=== PATIENT | female | born 1990 | race Caucasian/White ===

== ENCOUNTER 2016-06-02 07:30 | Inpatient (IN) | payer OTHER ==
[~2016-06-02] VITALS: Ht 170.2 cm; Wt 133.0 kg
[2016-06-02] MEDS ORDERED: LACTATED RINGER'S 1000ML 1,000 ML IV PRN (07:57)
[2016-06-02] MEDS ORDERED: DINOPROSTONE 10 MG INSERT PV ONE ×2 (08:00→21:00)
--- NOTE | 2016-06-02 08:21 | Progress Note ---
Progress Note Date of Service Jun 02, 2016. Progress Note Admit Note 24 WF P0000 at 39.6 weeks admitted for induction of labor for Class III obesity and GDM controlled with diet alone. No other medical problems. Cervix 1-2/50/- 2/anterior. GBS negative. FHT Cat 1. Will plan for Cervidil for cervical ripening.
[2016-06-02 08:43] LABS: HEMATOCRIT 34.7 % (37-47); MEAN CELL VOLUME 86.8 fL (80-100); MEAN CORPUSCULAR HGB CONC 33.4 g/dl (32-36); MEAN PLATELET VOLUME 11.9 fL (7.4-10.4); PLATELET COUNT 270 K/uL (130-400); WHITE BLOOD COUNT 8.52 K/uL (4.8-10.8)
[2016-06-02 08:47] VITALS: Ht 170.2 cm; Wt 133.0 kg
[2016-06-02] MEDS ORDERED: PRENTAB26 PO (08:49)
--- NOTE | 2016-06-02 08:51 | Progress Note ---
Progress Note Date of Service Jun 02, 2016. Progress Note Cervidil 10 mg placed in vagina. [facility] Cat [facility].
--- NOTE | 2016-06-02 22:18 | Progress Note ---
Progress Note Date of Service Jun 02, 2016. Progress Note Cervix 1-2/50/-3FHT T Cat 1 Cervidil 10 mg placed vaginally
[2016-06-03] MEDS ORDERED: BUTORPHANOL TARTRATE 1 MG/ML VIAL IV STA (03:57)
[2016-06-03] MEDS ORDERED: NURSING VERBAL MED ORDER ONE ×2 (04:00→14:45)
[2016-06-03] MEDS ORDERED: BUTORPHANOL TARTRATE 1 MG/ML VIAL ONE (04:01)
[2016-06-03] MEDS ORDERED: BUPIVACAINE 0.25% 30 ML VIAL ONE (04:50)
[2016-06-03] MEDS ORDERED: EpHEDrine SULFATE INJ 50 MG/ML AMP ONE (04:50)
[2016-06-03] MEDS ORDERED: FENTANYL 2MCG/ML ROPIV 1.25MG/ML 100ML BAG EPI ONE (04:51)
[2016-06-03] MEDS ORDERED: FENTANYL CITRATE INJ 50 MCG/1 ML 2 ML VIAL ONE (04:51)
[2016-06-03] MEDS: LACTATED RINGER'S 1000ML 1,000 ML IV SCH ×2 (05:37→13:39)
[2016-06-03] MEDS ORDERED: LACTATED RINGER'S 1000ML 500 ML IV PRN (05:51)
[2016-06-03] MEDS ORDERED: NALOXONE HCL INJ 1 MG in SODIUM CHLORIDE 0.9% 1000ML 1,000 ML IV PRN ×4 (05:51)
[2016-06-03] MEDS ORDERED: DiphenhydrAMINE HCL 50 MG/ML VIAL IV PRN (06:00)
[2016-06-03] MEDS ORDERED: ONDANSETRON INJ 2 MG/ML 2 ML VIAL IV PRN (06:00)
[2016-06-03] MEDS ORDERED: PROMETHAZINE HCL INJ 25 MG in SODIUM CHLORIDE 0.9% 50ML 50 ML IV PRN (06:00)
[2016-06-03] MEDS ORDERED: EpHEDrine SULFATE INJ 50 MG/ML AMP IV PRN (06:00)
[2016-06-03] MEDS ORDERED: NALOXONE HCL INJ 0.4 MG/1 ML VIAL/CARP IV PRN (06:00)
[2016-06-03] MEDS ORDERED: NALBUPHINE HCL INJ 10 MG/ML AMP IV PRN (06:00)
[2016-06-03] MEDS: FENTANYL 2MCG/ML ROPIV 1.25MG/ML 100ML BAG EPI PRN ×2 (07:07→11:32)
--- NOTE | 2016-06-03 09:30 | OB/GYN Progress Note ---
APPLICATION SECURITY SPECIALIST Progress Note Date of Service: Jun 03, 2016. Patient is seen Reviewed her chart IOL since yesterday for GDMA1 Received cervidilx2 and SROM at 330 am She feels pain in lower abdomen Her cervix 9 cm per her nurse FHR 140's, categ I Will call anesthesiology for pain control Continue to monitor
--- NOTE | 2016-06-03 12:21 | OB/GYN Progress Note ---
MERCHANDISING DIRECTOR Progress Note Date of Service: Jun 03, 2016. Patient is reevaluated She is comfortable No pain or pressure No urge to push VE: 10/100%/0 to +1 FHR: 140's categ I Continue to monitor Labor down for now Anticipate
--- NOTE | 2016-06-03 13:50 | OB/GYN Progress Note ---
TUBE SIZER OPERATOR Progress Note Date of Service: Jun 03, 2016. Patine felt pressure and started to push 20 min ago VE; +1 station, +2 with pushings FHR 140-160's in between Continue pushing and monitoring Anticipate
[2016-06-03] MEDS ORDERED: OXYTOCIN 30 UNITS/500ML NSS IV ONE (14:41)
[2016-06-03] MEDS ORDERED: CLINDAMYCIN IV 900 MG in DEXTROSE 5% ADD-VANTAGE 100ML 100 ML IV ONE (15:00)
[2016-06-03] MEDS ORDERED: BENZOCAINE 20% AER SPR 82.5 GM CAN EXT PRN (15:45)
[2016-06-03] MEDS ORDERED: LANOLIN OINT EXT PRN ×2 (15:45)
[2016-06-03] MEDS ORDERED: DIPHTHERIA/TETANUS/PERTUSSIS 0.5 ML SYR/VIAL IM. ONE (15:45)
[2016-06-03] MEDS ORDERED: HYDROCORTISONE ACETATE 25 MG SUPP PR PRN (15:45)
[2016-06-03] MEDS ORDERED: SUPERCREAM 0.870 % 15GM JAR EXT PRN (15:45)
[2016-06-03] MEDS ORDERED: OXYCODONE/ACETAMINOPHEN 5-325 TAB PO PRN (15:45)
[2016-06-03] MEDS ORDERED: MEASLES, MUMPS & RUBELLA VIRUS VIAL SQ. ONE (15:45)
[2016-06-03] MEDS ORDERED: OXYTOCIN 30 UNITS/500ML NSS IV PRN (15:45)
[2016-06-03] MEDS ORDERED: IBUPROFEN 600 MG TAB ONE (15:57)
--- NOTE | 2016-06-03 16:29 | OPERATIVE REPORT ---
DATE OF OPERATION: 06/03/2016 TIME OF DELIVERY OF BABY: 14:32 p.m. TIME OF DELIVERY OF PLACENTA: 14:49 p.m. DETAILS OF DELIVERY: The patient was found to be fully dilated and desired to push. She pushed for about 1 hour and 10 minutes and delivered the head without difficulty. There was a loose nuchal cord around the neck x1 which was reduced and shoulders were delivered with minimal traction and baby was handed off to the mother where mouth and nose were suctioned. Cord was clamped x2 and cut at 30 seconds and baby was handed to the awaiting pediatric team. Terminal meconium was noted. The cord blood was obtained. It was a 3-vessel cord. The perineum and vagina were checked for lacerations. There was a partial third degree perineal laceration at the posterior fourchette which was confirmed with rectal exam. Good sphincter tone was noted. An Allis clamps were used to hold external fibers of the external sphincter and those muscles were held and brought in the midline. It provided better support of the anal sphincter. Gloves were changed and then with 2-0 Vicryl, the external fibers of the sphincter were reapproximated with 2-0 Vicryl with [id number] and a U-type sutures with an end-to-end fashion. 2 sutures were placed and then rectal exam was repeated and noted to have an excellent sphincter tone and no sutures were felt. Gloves were changed and then the laceration was repaired with 2-0 Vicryl in a running locked fashion. The placenta was found to be in the vagina, delivered spontaneously intact and complete. Uterus was explored and found to be empty. Lower segment was cleared of all clots and debris. The Fundus was firm. Her vagina was check again to have oozing from the sides of repair. They were repaired gently with 2-0 Vicryl, but her vagina was found to be friable and peeling off while repairing. It was still oozing minimal blood. Then decision was made to apply Lazaro topical powder. It was applied to the vagina carrillo and good hemostasis was achieved. Then two 4 x 4 sponges were placed in the lower vagina to provide pressure. The skin was closed with 3-0 Vicryl on an SH needle in a subcuticular fashion. EBL was 300. Mother and baby tolerated the procedure well. Baby was a viable female , Apgars 8 over 9, weight was 3369 GR and I was present during whole procedure. She was given 900 mg of Clindamycin at the endo of procedure. I attest to the content of the Intraoperative Record and any orders documented therein. Any exceptions are noted below. MTDD
--- NOTE | 2016-06-03 17:31 | Anesthesia Procedure Note ---
Anesthesia Epidural Removal Nt Date & Time Jun 03, 2016 at 17:30 Vital Signs Pain Intensity: 5.0 Notes Mental Status: alert / awake / arousable, participated in evaluation Nausea / Vomiting: adequately controlled Pain: adequately controlled Airway Patency, RR, SpO2: stable & adequate BP & HR: stable & adequate Hydration State: stable & adequate Neuraxial Anesthesia: was administered Anesthetic Complications: no major complications apparent, pt satisfied with anesthetic care Epidural: removed without complications, with tip intact
--- NOTE | 2016-06-03 19:07 | OB/GYN Progress Note ---
PHYSICIST ASTROPHYSICS Progress Note Date of Service: Jun 03, 2016. Patient is reevaluated She is comfortable VSS Afebrile Baby is doing well Abd: soft, NT, Fundus firm Perineum: minimal blood on pad, two of the 4x4's placed after Lazaro powder was applied are minimally soaked with blood Removed those, there is still oozing from hymenal ring at 10 and 2 o'clock positions Repair at posterior vagina is hemostatic She has not been up to BR yet Placed Solomon catheter to bladder Lazaro powder was applied to those oozing spots and then another 4x4's ( two of them) were applied and placed between 2 labia Will order blood work for CBC, PTT, INR Continue to monitor
[2016-06-03 19:20] VITALS: BP 137/87; PULSE 112; TEMP 36.8
[2016-06-03 19:47] LABS: INR 0.9 (0.9-1.1); PARTIAL THROMBOPLASTIN RATIO 1.2; PROTHROMBIN TIME (PATIENT) 9.9 SECONDS (9.0-12.0)
[2016-06-03] MEDS: DOCUSATE SODIUM 100 MG CAP PO SCH (20:24)
[2016-06-03 20:44] LABS: BASO % 0.1 %; BASO ABS # 0.01 K/uL (0-0.2); COMPLETE YES; HEMATOCRIT 33.6 % (37-47); IG% 0.3 %; LYMPH % 6.3 %; LYMPH ABS # 1.21 K/uL (1.2-3.4); MEAN CELL VOLUME 87.7 fL (80-100); MEAN PLATELET VOLUME 12.1 fL (7.4-10.4); MONO % 5.3 %; PLATELET COUNT 337 K/uL (130-400); RED BLOOD COUNT 3.83 M/uL (4.2-5.4); WHITE BLOOD COUNT 19.14 K/uL (4.8-10.8)
[2016-06-03] MEDS: MAGNESIUM HYDROXIDE SUSP 30 ML UDC PO SCH (22:00)
[2016-06-03 23:40] VITALS: BP 151/90; PULSE 101; TEMP 36.7
[2016-06-04 03:45] VITALS: BP 140/85; PULSE 83; TEMP 36.4
[2016-06-04] MEDS: IBUPROFEN 600 MG TAB PO PRN ×4 (03:55→20:58)
--- NOTE | 2016-06-04 07:14 | OB/GYN Progress Note ---
SAFETY ADMIN ASSISTANT Progress Note Date of Service: Jun 04, 2016. Patient is doing well VSS Afebrile PE: Removed two 4x4 packing from between labia and perineum Minimal lochia Schwartz in draining clear urine Plan to d/c schwartz
[2016-06-04 07:27] LABS: HEMATOCRIT 30.1 % (37-47)
[2016-06-04 08:00] VITALS: BP 129/85; PULSE 79; TEMP 36.5
[2016-06-04] MEDS: DOCUSATE SODIUM 100 MG CAP PO SCH ×2 (08:23→20:05)
[2016-06-04] MEDS: PRENATAL VITAMIN TAB PO SCH (08:23)
[2016-06-04] MEDS: FERROUS SULFATE 325 MG TAB PO SCH (08:24)
--- NOTE | 2016-06-04 10:19 | OB/GYN Progress Note ---
ARABIC LINGUIST Progress Note Date of Service Jun 04, 2016. Subjective conversation w/ patient, physical exam Ambulation: ambulating normally Voiding: no voiding problems Passing Gas: Yes Diet Tolerance: Regular Diet Lochia: Moderate Feeding Type: Breast Feeding Review of Systems Constitutional: No chills, No fatigue, No fever, No problem reported, No sweats , No weakness, No weight loss Respiratory: No cough, No dyspnea at rest, No dyspnea on exertion, No hemoptysis, No problem reported, No shortness of breath, No sputum, No wheezing Cardiac: No PND, No chest pain, No claudication, No edema, No orthopnea, No palpitations, No problem reported Breast: No breast lump, No breast pain, No change in shape, No nipple discharge , No problem reported, No see HPI Abdomen: No GI bleeding, No constipation, No diarrhea, No nausea, No pain, No problem reported, No vomiting Female : No abnormal vaginal bleeding, No dysuria, No hematuria, No incontinence, No problem reported, No see HPI, No urinary frequency, No vaginal discharge Objective Vital Signs Date Time Temp Pulse Resp B/P Pulse Ox O2 Delivery O2 Flow Rate FiO2 06/04/16 08:00 Room Air 06/04/16 08:00 36.5 79 18 129/85 Room Air 06/04/16 03:45 36.4 83 16 140/85 06/03/16 23:40 36.7 101 18 151/90 06/03/16 23:40 Room Air 06/03/16 19:20 Room Air 06/03/16 19:20 36.8 112 18 137/87 Physical Exam General Appearance: WELL-APPEARING, WD/WN, NO APPARENT DISTRESS Respiratory/Chest: chest non-tender, lungs clear, normal breath sounds, no respiratory distress, no accessory muscle use Cardiovascular: regular rate, rhythm, no edema, no gallop, no JVD, no murmur Abdomen: normal bowel sounds, non tender, soft, no organomegaly, no pulsatile mass Fundus: Firm Incision Description: Clean, Dry & Intact Extremities: normal range of motion, non-tender, normal inspection, no pedal edema, no calf tenderness Laboratory Results Last 24 Hours Test 06/03/16 19:23 06/04/16 06:44 White Blood Count 19.14 K/uL Red Blood Count 3.83 M/uL Hemoglobin 11.1 g/dL 9.8 g/dL Hematocrit 33.6 % 30.1 % Mean Corpuscular Volume 87.7 fL Mean Corpuscular Hemoglobin 29.0 pg Mean Corpuscular Hemoglobin Concent 33.0 g/dl Platelet Count 337 K/uL Mean Platelet Volume 12.1 fL Neutrophils (%) (Auto) 88.0 % Lymphocytes (%) (Auto) 6.3 % Monocytes (%) (Auto) 5.3 % Eosinophils (%) (Auto) 0.0 % Basophils (%) (Auto) 0.1 % Neutrophils # (Auto) 16.85 K/uL Lymphocytes # (Auto) 1.21 K/uL Monocytes # (Auto) 1.01 K/uL Eosinophils # (Auto) 0.00 K/uL Basophils # (Auto) 0.01 K/uL RDW Standard Deviation 46.8 fL RDW Coefficient of Variation 14.7 % Immature Granulocyte % (Auto) 0.3 % Immature Granulocyte # (Auto) 0.06 K/uL Prothrombin Time 9.9 SECONDS Prothromb Time International Ratio 0.9 Activated Partial Thromboplast Time 30.2 SECONDS Partial Thromboplastin Ratio 1.2 Fibrinogen 483 mg/dl Assessment and Plan Day Number: 1 Continue Routine Care: Anticipte disch tomorrow
[2016-06-04 11:30] VITALS: BP 108/70; PULSE 86; TEMP 36.5; O2SAT 96
[2016-06-04 15:30] VITALS: BP 117/74; PULSE 99; TEMP 36.6; O2SAT 96
[2016-06-04] MEDS ORDERED: BISACODYL 5 MG TABEC PO SCH (20:00)
[2016-06-04] MEDS: MAGNESIUM HYDROXIDE SUSP 30 ML UDC PO SCH (22:01)
[2016-06-04 23:30] VITALS: BP 123/79; PULSE 99; TEMP 36.6; O2SAT 96
[2016-06-04] MEDS: ACETAMINOPHEN 325 MG TAB PO PRN (23:39)
[2016-06-05 06:07] LABS: HEMATOCRIT 28.9 % (37-47); MEAN CELL VOLUME 89.2 fL (80-100); MEAN CORPUSCULAR HEMOGLOBIN 28.1 pg (25-34); MEAN CORPUSCULAR HGB CONC 31.5 g/dl (32-36); MEAN PLATELET VOLUME 11.4 fL (7.4-10.4); PLATELET COUNT 232 K/uL (130-400); RED BLOOD COUNT 3.24 M/uL (4.2-5.4)
[2016-06-05] MEDS ORDERED: BISACODYL 10 MG SUPP PR PRN (07:00)
[2016-06-05] MEDS: PRENATAL VITAMIN TAB PO SCH (08:20)
[2016-06-05] MEDS: FERROUS SULFATE 325 MG TAB PO SCH (08:20)
[2016-06-05] MEDS: DOCUSATE SODIUM 100 MG CAP PO SCH (08:20)
[2016-06-05] MEDS: IBUPROFEN 600 MG TAB PO PRN ×3 (08:21→19:44)
[2016-06-05 08:51] VITALS: BP 135/86; PULSE 89; TEMP 36.4; O2SAT 92
[2016-06-05 09:01] VITALS: O2SAT 92
[2016-06-05] MEDS ORDERED: MTR600X PO (10:05)
--- NOTE | 2016-06-05 10:07 | Discharge Instructions ---
Discharge Instructions Date of Service Jun 05, 2016. Admission Reason for Admission: Induction Discharge Discharge Diagnosis / Problem: term delivered Discharge Goals Goal(s): Routine recovery after delivery Activity Recommendations Activity Limitations: as noted below Lifting Limitations: no more than 10 pounds, until after follow-up appointment Exercise/Sports Limitations: none, until after follow-up appointment May Resume Sexual Activity: after follow-up appointment Shower/Bathe: no limitations Driving or Machine Use: resume 3 days after discharge . Instructions / Follow-Up Instructions / Follow-Up ACTIVITY RECOMMENDATIONS: * Gradual return to full activity over the next 2-3 weeks. * No lifting - nothing heavier than baby over the next 2-3 weeks. * Do not engage in vigorous exercise, sexual activity or sports until cleared by your physician. * Do not drive or operate any motorized equipment until cleared by your physician. * You may shower/bathe daily. BREAST CARE: If you are not breast feeding: * Wear a supportive bra 24 hours a day for one to two weeks. * Avoid stimulating your breasts and nipples as much as possible during the first few weeks after delivery. * When taking a shower, have the warm water hit your back, not breasts. * When your breasts feel full, apply ice packs. Usually three to four times a day helps ease the discomfort. * Take a mild pain medication (Tylenol/Motrin) when you are uncomfortable. If breast feeding: * Use breast milk to lubricate nipples. Lansinoh cream may be used for sore nipples. You do not need to remove cream prior to breast feeding. If using a different brand of cream, check the label for directions regarding removal of cream prior to nursing. * Wear a supportive bra. * If having problems with breasts or breast feeding, call a new vehicle sales consultant or your health care provider. EPISIOTOMY CARE: After delivery, if you have an episiotomy (stitches), the following steps will ease discomfort and aid healing. * For the first 24 hours after delivery, place ice packs next to your episiotomy to help reduce swelling. * After the first 24 hour-period, sitz baths, either portable or in the tub, are suggested. A shower with a shower arm sprayed over the episiotomy may be comforting. * Jil care should be done after each voiding and bowel movement. Squirt warm water from a plastic bottle over the perineum (region of the body between the anus and urinary opening) and pat dry. * Use Dermoplast to ease discomfort. Shake container. [place] directly over the episiotomy. * Place a Tucks on a clean sanitary pad next to your episiotomy. OVER THE COUNTER MEDICATION: * For discomfort or pain, you may use Acetaminophen (Tylenol), Ibuprofen (Advil ), or Naproxen (Aleve) following the package directions. * For constipation you may use Colace following the package directions. SPECIAL CARE INSTRUCTIONS: When you are discharged from the hospital, it is important for you to follow the instructions listed below: * During the first week at home, you should be able to care for yourself and your baby. In addition, the usual light household activities are encouraged. * Limit your activities to the way you feel. Do not try to clean the house or move furniture. Be sensible. * If you actively engage in sports and have done so up until the time of your delivery, you may resume these activities as soon as you feel able. This may take up to one month or even longer. Use good judgment. * Continue to take your vitamins for at least six weeks after the of your baby. * Your diet need not be limited unless you were on a special diet before your delivery. Breast-feeding mothers need around 2500 calories per day and at least 64-80 ounces of fluid per day (8 to 10 glasses). * You should eat foods from the four major food groups. Crash diets or fad diets are to be avoided. Eating lean meats, fresh fruits and vegetables, low-fat dairy products, high fiber foods and a regular exercise program, will help you get back to your pre- weight without putting your health at risk. * Constipation is sometimes a problem after delivery. Take a mild laxative as needed. If breast feeding, Milk of Magnesia is acceptable to use. You may use a suppository or Fleets enema if no episiotomy. * A daily shower or tub bath is suggested. Be sure to thoroughly and gently dry the perineum. * A bloody vaginal discharge will usually continue until around four weeks post . A small amount of bleeding may continue for as long as six weeks. Vaginal discharge changes from the bright red bleeding after delivery to pink then brownish and finally yellowish-pink before becoming white and disappearing. * Bleeding may increase with activity. Your first period may come in 4-8 weeks. If you are breast feeding, your period may be delayed even longer. * [place] (sex) can begin whenever both you and your partner feel comfortable and do not have any form of genital infection. It is recommended that you wait until after your return appointment and discuss with your physician. If you have questions, please talk to your health care practitioner. A condom should be used to prevent infection and . * Foreplay, gentle intercourse and lubrication is very important the first several times to prevent pain. A water-based lubricant such as K-Y jelly or Astroglide may be used. * Tampons may be used six weeks after delivery. * Douching should be avoided for 6 weeks after delivery. * If you have RH negative blood and your baby is RH positive, you will receive RHOGAM by injection prior to discharge. The nurse will give you a card to keep with you that has the date and place that you received RHOGAM after delivery. * During your care, you had a Rubella screen done to check for the presence of rubella antibodies in your blood. If your test was negative, you will receive a Rubella vaccine prior to discharge. This vaccine may cause a fever, soreness at the injection site and flu-like symptoms. If these symptoms persist, notify your health care practitioner. is not advised for three months after a Rubella vaccine. There is a higher chance of having a baby with defects if conceived within three months of getting the vaccine. * If you were discharged 24 hours from delivery or before 48 hours: Visiting nurses will come to your home 48 hours after discharge to assess you and your baby. The visiting nurse will meet with you while you are in the hospital to arrange a time and get directions to your home. * Verbalizes understanding of car seat law as reviewed with patient nursing. * Car Seat hand-out given and reviewed with patient by nursing. * Shaken baby information reviewed with patient by nursing. Call you doctor if: * Heavy bleeding (saturating several pads an hour) or passing clots the size of your fist. * A fever >101 degrees F (38.3 degrees C) on two occasions four hours apart and/or chills. * Unusual pain in the pelvic or vaginal areas. * "Baby Blues" lasting longer than two weeks. If you have any questions or concerns, call your health care practitioner at . FOLLOW-UP VISIT: * Please call the office at to schedule a 6 week examination. It is important you keep this appointment. * It is important for you to make arrangements for either yearly or twice yearly check-ups thereafter. Current Hospital Diet Patient's current hospital diet: Regular OB Diet Discharge Diet Recommended Diet: Regular OB Diet Fluid Restriction: None Pending Studies Studies pending at discharge: no Medical Emergencies . Who to Call and When: Medical Emergencies: If at any time you feel your situation is an emergency, please call 911 immediately. . Non-Emergent Contact Non-Emergency issues call your: Primary Care Provider . . "Provider Documentation" section prepared by Jason Renteria. . VTE Core Measure Inpt VTE Proph given/why not?: Treatment not indicated
--- NOTE | 2016-06-05 10:12 | OB/GYN Progress Note ---
GRAVITY PROSPECTING OBSERVER Progress Note Date of Service Jun 05, 2016. Subjective conversation w/ patient, physical exam Ambulation: ambulating normally, ambulation with cane Passing Gas: Yes Lochia: Small Feeding Type: Breast Feeding Objective Vital Signs Date Time Temp Pulse Resp B/P Pulse Ox O2 Delivery O2 Flow Rate FiO2 06/05/16 09:01 92 Room Air 06/05/16 08:51 36.4 89 12 135/86 92 Room Air 06/04/16 23:30 36.6 99 18 123/79 96 Room Air 06/04/16 23:30 96 Room Air 06/04/16 15:30 36.6 99 16 117/74 Room Air 06/04/16 15:30 96 Room Air 06/04/16 11:30 36.5 86 18 108/70 96 Room Air Physical Exam General Appearance: WELL-APPEARING, WD/WN, NO APPARENT DISTRESS Abdomen: non tender, soft Fundus: Firm Extremities: non-tender, normal inspection, no pedal edema, no calf tenderness Laboratory Results Last 24 Hours Test 06/05/16 05:25 White Blood Count 8.90 K/uL Red Blood Count 3.24 M/uL Hemoglobin 9.1 g/dL Hematocrit 28.9 % Mean Corpuscular Volume 89.2 fL Mean Corpuscular Hemoglobin 28.1 pg Mean Corpuscular Hemoglobin Concent 31.5 g/dl RDW Standard Deviation 48.7 fL RDW Coefficient of Variation 14.9 % Platelet Count 232 K/uL Mean Platelet Volume 11.4 fL Assessment and Plan Day Number: 2 Continue Routine Care: discharged
[2016-06-05] MEDS: ACETAMINOPHEN 325 MG TAB PO PRN (13:35)
[2016-06-05 15:30] VITALS: BP 141/91; PULSE 80; TEMP 37; O2SAT 100
[2016-06-05 19:23] VITALS: BP 141/91; PULSE 80; TEMP 37; O2SAT 100
[2016-06-13 18:58] LABS: APTT 31 sec (22-34); F8 ACT 276 % (50-180); RISTOCETIN COFACTOR** 4459X 461 % (42-200); VWF CONSULT Limited
== END 2016-06-05 20:40 | disposition home or self-care (01) | DRG 775 ==
LOC: C.LD 07:30 → C.OBG 06-03 19:28
PROVIDERS: ADMIT Obstetrics & Gynecology; ATTEND Obstetrics & Gynecology
PROC: 0DQR0ZZ Repair Anal Sphincter, Open Approach (ICD-10-PCS; principal; 2016-06-03)
PROC: 10E0XZZ Delivery of Products of Conception, External Approach (ICD-10-PCS; principal; 2016-06-03)
PROC: 4A1HXFZ Monitoring of Products of Conception, Cardiac Rhythm, External Approach (ICD-10-PCS; principal; 2016-06-03)
DX: O24.420 Gestational diabetes mellitus in childbirth, diet controlled (principal); O70.20 Third degree perineal laceration during delivery, unspecified; O99.214 Obesity complicating childbirth; O69.81X0 Labor and delivery complicated by cord around neck, without compression, not applicable or unspecified; Z98.41 Cataract extraction status, right eye; Z3A.39 39 weeks gestation of pregnancy; Z37.0 Single live birth; Z87.891 Personal history of nicotine dependence; Z83.3 Family history of diabetes mellitus; Z82.49 Family history of ischemic heart disease and other diseases of the circulatory system; Z82.3 Family history of stroke